=== PATIENT | female | born 1975 | race African-American/Black ===

== ENCOUNTER 2017-09-04 04:36 | Emergency (ER) | payer OTHER ==
[~2017-09-04] VITALS: Ht 152.4 cm; Wt 59.0 kg
[2017-09-04] MEDS ORDERED: NOHOMEMEDICATIONS (04:48)
[2017-09-04 05:56] VITALS: BP 129/71
== END 2017-09-04 05:57 ==
LOC: ER 04:36
DX: S91.321A Laceration with foreign body, right foot, initial encounter (principal); F17.210 Nicotine dependence, cigarettes, uncomplicated; W25.XXXA Contact with sharp glass, initial encounter; Y93.01 Activity, walking, marching and hiking; Y92.89 Other specified places as the place of occurrence of the external cause; Y99.8 Other external cause status